=== PATIENT | male | born 2005 | race Caucasian/White ===

== ENCOUNTER 2025-10-03 17:28 | Emergency (ER) | payer MEDICAID, OTHER ==
[~2025-10-03] VITALS: Ht 185.4 cm; Wt 103.4 kg
[2025-10-03 17:38] VITALS: TEMP 99
[2025-10-03] MEDS: TETANUS/DIPHTH/ACEL. PERTUSSIS 0.5 ML SYR IM.IMMUN ONE (20:24)
[2025-10-03] MEDS: LIDOCAINE 2% W/EPINEPHrine 20 ML VIAL **PRES FREE INJ ONE (20:35)
[2025-10-03] MEDS: ceFAZolin SOD 2 GM in DEXTROSE 5% (D5W) ADV/MINI-BAG 50 ML IV ONE (20:40)
[2025-10-03] MEDS ORDERED: CEPH500C PO ×2 (22:09)
[2025-10-03 22:31] VITALS: BP 142/68; O2SAT 99
== END 2025-10-03 22:32 | disposition home or self-care (01) ==
LOC: M ED 17:28
DX: S51.012A Laceration without foreign body of left elbow, initial encounter (principal); W26.1XXA Contact with sword or dagger, initial encounter; Y92.009 Unspecified place in unspecified non-institutional (private) residence as the place of occurrence of the external cause; Y93.89 Activity, other specified; Y99.9 Unspecified external cause status; Z23 Encounter for immunization
CPT/HCPCS: 73080; 90471; 90715; 96374; 99284; J0690

== ENCOUNTER 2025-10-07 08:33 | Day surgery (SDC) | payer OTHER ==
[~2025-10-07] VITALS: Ht 185.4 cm; Wt 104.9 kg
[~2025-10-07 08:33] MED LIST: CEPH500C PO
[2025-10-07] MEDS ORDERED: ONDANSETRON 4MG/2ML VIAL As Ordered ONE (10:10)
[2025-10-07] MEDS ORDERED: dexAMETHasone 4 MG/ML 1 ML VIAL As Ordered ONE (10:10)
[2025-10-07] MEDS ORDERED: KETOROLAC 30 MG/ML 1 ML VIAL As Ordered ONE (10:10)
[2025-10-07] MEDS ORDERED: LIDOCAINE 2% 100 MG/5 ML SDV (FOR ANES.) As Ordered ONE (10:11)
[2025-10-07] MEDS ORDERED: MIDAZOLAM INJ 2 MG/2 ML VIAL As Ordered ONE (10:11)
[2025-10-07] MEDS: LR 1,000 ML IV SCH (10:47)
[2025-10-07] MEDS: SCOPOLAMINE 1MG TRANSDERMAL PATCH TOP ONE (10:48)
[2025-10-07] MEDS: ceFAZolin SOD 2 GM IV ONCE IV ONE (11:14)
[2025-10-07] MEDS ORDERED: MEPERIDINE 25 MG/ML 1 ML VIAL IV PRN (11:55)
[2025-10-07 12:58] VITALS: BP 131/72; TEMP 97.5; O2SAT 100
== END 2025-10-07 13:16 | disposition home or self-care (01) ==
LOC: M SDC 08:33
PROVIDERS: ATTEND Orthopaedic Surgery Hand Surgery
DX: S51.012A Laceration without foreign body of left elbow, initial encounter (principal); W26.1XXA Contact with sword or dagger, initial encounter; Y93.9 Activity, unspecified; Y92.9 Unspecified place or not applicable
CPT/HCPCS: 11044; J0665; J0688; J1100; J1885; J2250; J2405; J3010